=== PATIENT | female | born 1975 | race Hispanic/Latino ===

== ENCOUNTER 2024-11-25 08:29 | Outpatient (CLI) | payer OTHER | END 2024-11-25 08:30 | disposition home or self-care (01) | LOC: CSHSLEEP 08:29 | PROVIDERS: ATTEND Student in an Organized Health Care Education/Training Program | DX: G47.33 Obstructive sleep apnea (adult) (pediatric) (principal); R53.83 Other fatigue; R09.89 Other specified symptoms and signs involving the circulatory and respiratory systems; F41.9 Anxiety disorder, unspecified; E66.9 Obesity, unspecified; Z68.42 Body mass index [BMI] 45.0-49.9, adult; R06.83 Snoring; I10 Essential (primary) hypertension | CPT/HCPCS: 95800 ==